=== PATIENT | female | born 1950 | race Caucasian/White ===

== ENCOUNTER 2016-03-31 10:42 | Emergency (ER) | payer MEDICARE, OTHER ==
[~2016-03-31] VITALS: Ht 147.3 cm; Wt 59.0 kg
[2016-03-31 10:49] VITALS: BP 143/89; PULSE 72; RESP 16; TEMP 98.7; O2SAT 97
[2016-03-31] MEDS ORDERED: ATOR20TA15 PO (11:09)
[2016-03-31] MEDS ORDERED: FLUO20CA4 PO (11:09)
[2016-03-31] MEDS ORDERED: SITA25 PO (11:09)
[2016-03-31] MEDS ORDERED: LISI10TA3 PO (11:09)
[2016-03-31] MEDS ORDERED: BUPR150T3 PO (11:09)
[2016-03-31] MEDS ORDERED: TRAZ50TA12 PO (11:09)
[2016-03-31] MEDS ORDERED: TOPI1TAB36 PO (11:09)
[2016-03-31] MEDS ORDERED: ALPR0.25 PO (11:09)
[2016-03-31] MEDS ORDERED: LEVO25TA4 PO (11:09)
[2016-03-31] MEDS ORDERED: AMLO5CAP PO (11:09)
[2016-03-31] MEDS ORDERED: METF500T PO (11:09)
[2016-03-31] MEDS ORDERED: MONT10TA4 PO (11:09)
--- NOTE | 2016-03-31 11:10 | PD ---
HPI . Cough Chief Complaint: Respiratory Symptoms Time Seen by Provider: 11:05 Travel History International Travel<30 days: No Contact w/Intl Traveler<30days: No Traveled to known affect area: No History of Present Illness HPI Patient presents with cough for about 3 days. She has history of asthma/COPD. She uses Advair and inhaled beta agonist regularly. She states she used her DuoNeb 4 times yesterday but none yet today. She reports no fever and cough that is productive only of clear phlegm. PFSH Past Medical History Cardiovascular Problems: Yes (HTN, HIGH CHOLESTEROL) Diabetes: Yes Respiratory: Yes (ASTHMA, BRONCHITIS) Social History Tobacco Use: No Allergies-Medications (Allergen,Severity, Reaction): Coded Allergies: No Known Allergies (Unverified , 03/31/16) Reported Meds & Prescriptions Reported Meds & Active Scripts Active Reported Proair Hfa 8.5 GM Inh (Albuterol Sulfate) 90 Mcg/Act Aer 2 Puff INH Q6H PRN 108 mcg/actuation Duoneb (Ipratropium-Albuterol Neb) 0.5-2.5 Mg/3 Ml Neb 1 Nebule INH Q8HR NEB Advair Diskus Inh (Fluticasone-Salmeterol Inh) 250-50 Mcg/Blist Aer 1 Puff INH BID Rinse mouth after use. Alprazolam 0.25 Mg Tab 0.25 Mg PO Q8H PRN Topiramate 50 Mg Tab 50 Mg PO BID Atorvastatin (Atorvastatin Calcium) 20 Mg Tab 20 Mg PO HS Fluoxetine (Fluoxetine HCl) 20 Mg Cap 20 Mg PO DAILY Lisinopril 10 Mg Tab 10 Mg PO BID Montelukast (Montelukast Sodium) 10 Mg Tab 10 Mg PO HS Trazodone (Trazodone HCl) 50 Mg Tab 50 Mg PO HS Amlodipine-Benazepril 5-10 Mg Cap 1 Cap PO DAILY Bupropion HCl ER 24 HR (Bupropion HCl) 150 Mg Tab 150 Mg PO DAILY Januvia (Sitagliptin Phosphate) 25 Mg Tab 25 Mg PO DAILY Metformin (Metformin HCl) 500 Mg Tab 500 Mg PO BIDPC With meals Levothyroxine (Levothyroxine Sodium) 25 Mcg Tab 25 Mcg PO DAILY Review of Systems Except as stated in HPI: all other systems reviewed are Neg General / Constitutional: No: Fever, Chills Respiratory: Positive: Cough, Shortness of Breath, Wheezing Physical Exam Narrative GENERAL: Healthy-appearing woman who did have some paroxysmal coughing. SKIN: Warm and dry. HEAD: Atraumatic. Normocephalic. EYES: Pupils equal and round. ENT: No nasal bleeding or discharge. Mucous membranes pink and moist. NECK: Trachea midline. CARDIOVASCULAR: Regular rate and rhythm. RESPIRATORY: No accessory muscle use. Lungs have full air movement with no wheezing. She has paroxysmal coughing with deep respirations. GASTROINTESTINAL: Abdomen soft, non-tender, nondistended. MUSCULOSKELETAL: No obvious deformities. No edema. NEUROLOGICAL: Awake and alert. No obvious cranial nerve deficits. Motor grossly within normal limits. Normal speech. PSYCHIATRIC: Appropriate mood and affect; insight and judgment normal. Data Data Last Documented VS Vital Signs Date Time Temp Pulse Resp B/P Pulse Ox O2 Delivery O2 Flow Rate FiO2 03/31/16 10:49 98.7 72 16 143/89 97 Orders Iv Access Insert/Monitor (03/31/16 11:05) Sodium Chloride 0.9% Flush (Ns Flush) (03/31/16 11:15) Methylprednisolone So Succ Inj (Solumedr (03/31/16 11:15) Albuterol-Ipratropium Neb (Duoneb Neb) (03/31/16 11:15) MDM Medical Decision Making Medical Screen Exam Complete: Yes Emergency Medical Condition: Yes Medical Record Reviewed: Yes (she has no previous visits in our system.) Differential Diagnosis Differential diagnosis of dyspnea includes but is not limited to congestive heart failure, pneumonia, wheezing, pneumothorax, pulmonary embolism Narrative Course Patient presents with a 3 to four-day history of increasing cough and shortness of breath. Sounds like she is probably having a COPD exacerbation. I will start by giving her steroids and stacked nebs. I will reassess and add further tests/treatments as needed. 12:23 PM Patient reports she is feeling much better. She is no longer having the paroxysmal cough. Her lungs had improved air movement. Diagnosis Primary Impression: COPD exacerbation Patient Instructions: COPD (Chronic Obstructive Pulmonary Disease) (ED), General Instructions Scripts Prednisone (48) 10 mg tab Dose Pack 10 Mg [id number] Mg PO DIRECTED #1 DSPK Ref 0 Prov:Josey Rudd MD 03/31/16 Disposition: 01 DISCHARGE HOME Condition: Stable Josey Rudd MD Mar 31, 2016 11:10
[2016-03-31] MEDS ORDERED: methylPREDNISolone SOD SUCC 125 MG/2 ML VIAL IVP ONE (11:15)
[2016-03-31] MEDS ORDERED: SODIUM CHLORIDE 0.9% FLUSH 5 ML FLUSH IVF PRN (11:15)
[2016-03-31] MEDS ORDERED: ALBUAER3 INH (11:18)
[2016-03-31] MEDS ORDERED: IPRASOL INH (11:18)
[2016-03-31] MEDS ORDERED: ADVA250A INH (11:18)
[2016-03-31] MEDS: RESP: ALBUTEROL 2.5 MG/IPRATROPIUM 0.5 MG NEB (SCH) INH ×2 (11:24→11:28)
[2016-03-31] MEDS ORDERED: PRED10PA2 PO (12:23)
== END 2016-03-31 12:41 | disposition home or self-care (01) ==
LOC: PHEFT 10:42
DX: J44.1 Chronic obstructive pulmonary disease with (acute) exacerbation (principal); I10 Essential (primary) hypertension; E78.00 Pure hypercholesterolemia, unspecified; E11.9 Type 2 diabetes mellitus without complications; Z79.4 Long term (current) use of insulin
CPT/HCPCS: 94640; 94664; 96374; 99283; J2930

== ENCOUNTER 2016-04-10 17:23 | Emergency (ER) | payer MEDICARE, OTHER ==
[~2016-04-10] VITALS: Ht 147.3 cm; Wt 59.0 kg
[~2016-04-10 17:23] MED LIST: ADVA250A INH; ALBUAER3 INH; ALPR0.25 PO; AMLO5CAP PO; ATOR20TA15 PO; BUPR150T3 PO; FLUO20CA4 PO; IPRASOL INH; LEVO25TA4 PO; LISI10TA3 PO; METF500T PO; MONT10TA4 PO; PRED10PA2 PO; SITA25 PO; TOPI1TAB36 PO; TRAZ50TA12 PO
[2016-04-10 17:29] VITALS: BP 144/89; PULSE 81; RESP 18; TEMP 98.5; O2SAT 98
--- NOTE | 2016-04-10 17:51 | PD ---
HPI . worsening sob and coughing since last visit Chief Complaint: Respiratory Symptoms Time Seen by Provider: 17:51 Travel History International Travel<30 days: No Contact w/Intl Traveler<30days: No Traveled to known affect area: No History of Present Illness HPI 65 yr old female with HTN, HLD, and asthma here with c/o worsening sob and coughing. Patient was seen on 03/31/16 and states she was given prednisone taper. She says she is no better than she was and actually worse than when she came in. She is requesting antibiotics. She says she is coughing frequently and now coughing up green mucous. She has some blood tinge nasal drainage when blowing her nose. She denies any fever, chills, chest pain, nausea, vomiting, or diaphoresis. PFSH Past Medical History Hx Anticoagulant Therapy: No Asthma: Yes Depression: Yes Cardiovascular Problems: Yes (HTN, CHOL) High Cholesterol: Yes Diabetes: Yes Hypertension: Yes Respiratory: Yes (ASTHMA AND BRONCHITIS) Thyroid Disease: Yes (HYPOTHYROID) ?: Not Past Surgical History Appendectomy: Yes Hysterectomy: No Tonsillectomy: Yes Other Surgery: Yes (SINUS SX) Social History Alcohol Use: Yes (SOCIALLY) Tobacco Use: No Substance Use: No Allergies-Medications (Allergen,Severity, Reaction): Coded Allergies: No Known Allergies (Unverified , 04/10/16) Reported Meds & Prescriptions Reported Meds & Active Scripts Active Proair Hfa 8.5 GM Inh (Albuterol Sulfate) 90 Mcg/Act Aer 2 Puff INH Q6H PRN 108 mcg/actuation Tessalon Perles (Benzonatate) 100 Mg Cap 100 Mg PO TID PRN Augmentin (Amoxicillin-Clavulanate) 875-125 mg Tab 875 Mg PO BID not for use in CrCl <30 ml/min. Duoneb (Ipratropium-Albuterol Neb) 0.5-2.5 Mg/3 Ml Neb 1 Nebule INH Q6HR NEB Prednisone 50 Mg Tab 50 Mg PO DAILY Prednisone (48) 10 mg tab Dose Pack (Prednisone) 10 Mg Dspk 10 Mg PO DIRECTED Reported Zyrtec Allergy (Cetirizine HCl) 10 Mg Cap 10 Mg PO DAILY Proair Hfa 8.5 GM Inh (Albuterol Sulfate) 90 Mcg/Act Aer 2 Puff INH Q6H PRN 108 mcg/actuation Duoneb (Ipratropium-Albuterol Neb) 0.5-2.5 Mg/3 Ml Neb 1 Nebule INH Q8HR NEB Advair Diskus Inh (Fluticasone-Salmeterol Inh) 250-50 Mcg/Blist Aer 1 Puff INH BID Rinse mouth after use. Alprazolam 0.25 Mg Tab 0.25 Mg PO Q8H PRN Topiramate 50 Mg Tab 50 Mg PO BID Atorvastatin (Atorvastatin Calcium) 20 Mg Tab 20 Mg PO HS Fluoxetine (Fluoxetine HCl) 20 Mg Cap 20 Mg PO DAILY Lisinopril 10 Mg Tab 10 Mg PO BID Montelukast (Montelukast Sodium) 10 Mg Tab 10 Mg PO HS Trazodone (Trazodone HCl) 50 Mg Tab 50 Mg PO HS Amlodipine-Benazepril 5-10 Mg Cap 1 Cap PO DAILY Bupropion HCl ER 24 HR (Bupropion HCl) 150 Mg Tab 150 Mg PO DAILY Januvia (Sitagliptin Phosphate) 25 Mg Tab 25 Mg PO DAILY Metformin (Metformin HCl) 500 Mg Tab 1,000 Mg PO BIDPC With meals Levothyroxine (Levothyroxine Sodium) 25 Mcg Tab 25 Mcg PO DAILY Review of Systems General / Constitutional: No: Fever Eyes: No: Visual changes HENT: Positive: Congestion, No: Headaches Cardiovascular: No: Chest Pain or Discomfort Respiratory: Positive: Cough, Shortness of Breath, Wheezing Gastrointestinal: No: Abdominal Pain Genitourinary: No: Dysuria Musculoskeletal: No: Pain Skin: No Rash Neurologic: No: Weakness Psychiatric: No: Depression Endocrine: No: Polydipsia Hematologic/Lymphatic: No: Easy Bruising Physical Exam Narrative GENERAL: AAO x 3, no acute distress, Well-nourished, well-developed patient. Frequent coughing SKIN: Warm and dry. No visible rashes or bruising. HEAD: Normocephalic and atraumatic. EYES: No scleral icterus. No injection or drainage. EOM intact, PERRLA ENT: No nasal drainage noted. Mucous membranes pink. Airway patent. No nosebleed seen on exam. NECK: Supple, trachea midline. No JVD. No lymphadenopathy. CARDIOVASCULAR: Regular rate and rhythm without murmurs, gallops, or rubs. RESPIRATORY: No accessory muscle use. + wheezing b/l, decreased breath sounds. GASTROINTESTINAL: Abdomen soft, non-tender, nondistended. EXTREMITIES: No cyanosis or edema. BACK: Nontender without obvious deformity. No CVA tenderness. PSYCH: AAO x 3, normal affect. Data Data Last Documented VS Vital Signs Date Time Temp Pulse Resp B/P Pulse Ox O2 Delivery O2 Flow Rate FiO2 04/10/16 17:59 98 Room Air 04/10/16 17:29 98.5 81 18 144/89 Orders Chest, Single Ap (04/10/16 17:56) Albuterol-Ipratropium Neb (Duoneb Neb) (04/10/16 18:00) MDM Medical Decision Making Medical Screen Exam Complete: Yes Emergency Medical Condition: Yes Medical Record Reviewed: Yes Differential Diagnosis worsening bronchitis, asthma/copd exacerbation, PNA Narrative Course 65 yr old female with HTN, HLD, and asthma here with c/o worsening sob and coughing. Patient was seen on 03/31/16 and states she was given prednisone taper. She says she is no better than she was and actually worse than when she came in. She is requesting antibiotics. She says she is coughing frequently and now coughing up green mucous. She has some blood tinge nasal drainage when blowing her nose. She denies any fever, chills, chest pain, nausea, vomiting, or diaphoresis. Patient seen and examined. CXR ordered. No PNA. Duoneb administered. Patient breathing better afterwards. Discussed antibiotic treatment with patient. Recommend f/u with primary care provider. Return to ED if your symptoms return or worsen. Diagnosis Primary Impression: COPD exacerbation Additional Impression: Acute sinusitis Qualified Code: J01.90 - Acute sinusitis, recurrence not specified, unspecified location Patient Instructions: General Instructions Additional Instructions: Please follow up with your primary care doctor. Take medications as prescribed. Return to Emergency room if your symptoms return or worsen. Use your breathing treatments 4 times a day. Scripts Albuterol 8.5 GM Inh (Proair Hfa 8.5 GM Inh)90 Mcg/Act Aer2 Puff INH Q6H PRN ( SHORTNESS OF BREATH) #1 INHALER Ref 0 108 mcg/actuation Prov:Lee Ann Le PA 04/10/16 Benzonatate (Tessalon Perles)100 Mg [id number] Mg PO TID PRN (COUGH) #30 CAP Ref 0 Prov:Lee Ann Le 04/10/16 Amoxicillin-Clavulanate (Augmentin)875-125 mg [id number] Mg PO BID #20 TAB Ref 0 not for use in CrCl <30 ml/min. Prov:Lee Ann Le 04/10/16 Ipratropium-Albuterol Neb (Duoneb)0.5-2.5 Mg/3 Ml Neb1 Nebule INH Q6HR NEB # 120 NEBULE Ref 0 Prov:Lee Ann Le 04/10/16 Prednisone 50 Mg Tab50 Mg PO DAILY #5 TAB Ref 0 Prov:Lee Ann Le 04/10/16 Disposition: 01 DISCHARGE HOME Condition: Stable Lee Ann Le Apr 10, 2016 17:51
[2016-04-10] MEDS ORDERED: ZYRT10CA PO (18:07)
[2016-04-10] MEDS: RESP: ALBUTEROL 2.5 MG/IPRATROPIUM 0.5 MG NEB (SCH) INH (18:07)
[2016-04-10] MEDS ORDERED: PRED50 PO (19:11)
[2016-04-10] MEDS ORDERED: BENZ100 PO (19:11)
[2016-04-10] MEDS ORDERED: ALBUAER3 INH (19:11)
[2016-04-10] MEDS ORDERED: AUGM875T PO (19:11)
[2016-04-10] MEDS ORDERED: IPRASOL INH (19:11)
--- NOTE | 2016-04-10 19:37 | RADHPO ---
EXAM DATE/TIME: 04/10/2016 18:48 [facility] COMPARISON: No previous studies available for comparison. INDICATIONS : Wheezing, cough, and shortness of breath for one month. MEDICAL HISTORY : None. SURGICAL HISTORY : None. ENCOUNTER: Initial ACUITY: 1 month PAIN SCORE: 0/10 LOCATION: Bilateral chest FINDINGS: A single view of the chest demonstrates the lungs to be symmetrically aerated without evidence of mas s, infiltrate or effusion. Minimal basilar atelectasis. The cardiomediastinal contours are unremarka ble. Osseous structures are intact. CONCLUSION: 1. Minimal basilar atelectasis. No focal infiltrate or effusion. Lobo Brennan MD on April 10, 2016 at 19:36 Board Certified Radiologist. This report was verified electronically.
== END 2016-04-10 20:03 | disposition home or self-care (01) ==
LOC: PHEFT 17:23
DX: J44.1 Chronic obstructive pulmonary disease with (acute) exacerbation (principal); J01.90 Acute sinusitis, unspecified; J45.909 Unspecified asthma, uncomplicated; E03.9 Hypothyroidism, unspecified; E78.00 Pure hypercholesterolemia, unspecified; I10 Essential (primary) hypertension
CPT/HCPCS: 71010; 94640; 94664; 99284